=== PATIENT | male | born 1990 | race Caucasian/White ===

== ENCOUNTER 2019-07-13 11:23 | Emergency (ER) | payer SELFPAY ==
[~2019-07-13] VITALS: Ht 180.3 cm; Wt 68.0 kg
[2019-07-13 11:44] VITALS: BP 102/60
[2019-07-13] MEDS ORDERED: LIDOCAINE 1% HCL (LOCAL ANESTH.) INJ 20ML MDV IJ ONE (12:15)
== END 2019-07-13 13:05 | disposition home or self-care (01) ==
LOC: ER 11:23
DX: S61.217A Laceration without foreign body of left little finger without damage to nail, initial encounter (principal); S61.215A Laceration without foreign body of left ring finger without damage to nail, initial encounter; W22.8XXA Striking against or struck by other objects, initial encounter; Y93.89 Activity, other specified; Y99.8 Other external cause status; Y92.89 Other specified places as the place of occurrence of the external cause
CPT/HCPCS: 12002; 73140; 99284; J2001